=== PATIENT | male | born 1950 | race Caucasian/White ===

== ENCOUNTER → 2024-05-16 15:17 | Outpatient (CLI) | payer MEDICARE, SELFPAY ==
--- NOTE | 2024-05-16 17:34 | DI.NM.S_ITS ---
DATE OF SERVICE: 05/16/2024 PROCEDURE: Exercise stress test. INDICATIONS: Paroxysmal AFib, pulmonary hypertension. CARDIAC STRESS: The patient underwent exercise stress test under the supervision of an attending staff. He walked on Bulmaro protocol for 7 minutes and 40 seconds, achieved maximum heart rate of 146 which was 101% of target heart rate, 10.1 METs of workload and DEEJAY -26%. Resting blood pressure 122/72 and peak blood pressure 166/90 mmHg. 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 During stress, patient remained in right bundle-branch block and left anterior fascicular block. Occasional PACs and PVCs. No obvious atrial fibrillation or ventricular tachycardia. No obvious new ischemic changes. No anginal symptoms. Moderate shortness of breath. CONCLUSION: Exercise stress test is negative for inducible ischemia. Good exercise tolerance. Walked on Bul[place]o protocol for 7 minutes and 40 seconds. DEEJAY -26%. Normal hemodynamic response. Baseline sinus bradycardia with right bundle-branch block and left anterior fascicular block with appropriate chronotropic response. 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 No chest pain. Overall, low-risk exercise stress test. Ely Naman - PERNELL/ramu/NEEMA doc#: [id number]/job#: [id number] dd: 05/16/2024 16:57:00 dt: 05/16/2024 17:24:00 DICTATING /COPIES TO: Sylvester Yin MD COPIES MNE: WEI;
== END ==
PROVIDERS: PCP Student in an Organized Health Care Education/Training Program; Referring Provider Student in an Organized Health Care Education/Training Program; Visit Provider Student in an Organized Health Care Education/Training Program
DX: I48.0 Paroxysmal atrial fibrillation (principal); I27.20 Pulmonary hypertension, unspecified
CPT/HCPCS: 93017